=== PATIENT | male | born 1965 | race Caucasian/White ===

== ENCOUNTER 2017-07-30 11:04 | Emergency (ER) | payer OTHER ==
[~2017-07-30] VITALS: Ht 177.8 cm; Wt 99.8 kg
[~2017-07-30 11:04] MED LIST: ACYC200 PO; ALBIPROI; ALBIPROI INH; ALBU.083IS IH; ALBU90I INH; ALBU90OI; ALBU90OI INH; AMIT25 PO; AMOX500 PO; CYCL10 PO; DOXY100 PO; Doxycycline Hy100 MG PO; FLUSAL115; FLUSAL2505; FLUT44OIA IH; HYDACE10B PO; HYDACE5 PO; HYDGUAL120 PO; IBUP800 PO; KETO10 PO; LORA1 PO; MONT10T; NAPR500 PO; OXYACE5T PO; PERM5TC TOP; PRED10 PO; PRED20 PO; Prednisone20 MG PO; RXTRAM50 PO; SULTRIDS PO; Zofran Odt4 MG SL
[2017-07-30 12:38] LABS: BASOPHILS ABSOLUTE AUTO 0.09 K/mm3 (0.00-0.23); BASOPHILS PERCENT AUTO 1 % (0-2); EOSINOPHILS ABSOLUTE AUTO 0.05 K/mm3 (0.00-0.68); EOSINOPHILS PERCENT AUTO 0 % (0-6); Hematocrit 48.2 % (37.0-53.0); Hemoglobin 16.4 g/dL (13.5-17.5); IMMATURE GRAN ABSOLUTE AUTO 0.04 K/mm3 (0.00-0.10); IMMATURE GRAN PERCENT AUTO 0 % (0-1); LYMPHOCYTES ABSOLUTE AUTO 3.89 K/mm3 (0.84-5.20); LYMPHOCYTES PERCENT AUTO 27 % (21-46); MONOCYTES ABSOLUTE AUTO 1.07 K/mm3 (0.16-1.47); MONOCYTES PERCENT AUTO 7 % (4-13); Mean Corpuscular HGB 29.6 pg (26.0-34.0); Mean Corpuscular Volume 87 fL (80-100); Mean Platelet Volume 9.4 fL (9.1-12.4); NEUTROPHILS ABSOLUTE AUTO 9.49 K/mm3 (1.96-9.15); NEUTROPHILS PERCENT AUTO 65 % (41-73); Platelet Count 269 K/mm3 (150-400); RDW Coefficient Variation 15.2 % (11.7-14.2); RDW Standard Deviation 48.5 fL (35.1-46.3); Red Blood Cell Count 5.54 M/mm3 (4.30-5.90); White Blood Cell Count 14.63 K/mm3 (4.00-11.30)
[2017-07-30 12:41] LABS: Alanine Aminotransfer (ALT/SGP 27 U/L (12-78); Albumin, Blood 3.9 g/dL (3.4-5.0); Alk Phos 97 U/L (50-136); Anion Gap 7 mmol/L (6-16); Aspartate Aminotrans (AST/SGOT 21 U/L (12-37); Bilirubin, Total 0.9 mg/dL (0.1-1.0); Blood Urea Nitrogen 8 mg/dL (8-24); Bun/Creatinine Ratio 12.5 (12.0-20.0); CO2, Blood 26 mmol/L (21-32); Calcium, Blood 8.6 mg/dL (8.5-10.1); Chloride, Blood 102 mmol/L (98-108); Creatinine, Blood 0.64 mg/dL (0.60-1.20); Glomerular Filtration Rate >60 (60-); Glucose, Blood 109 mg/dL (70-99); Potassium, Blood 4.1 mmol/L (3.5-5.5); Sodium, Blood 135 mmol/L (136-145); Total Protein, Blood 7.9 g/dL (6.4-8.2)
[2017-07-30 13:35] LABS: U Amphetamine Screen Not Detected; U Barbituate Screen Not Detected; U Benzodiazapine Screen Not Detected; U Cocaine Screen Not Detected; U Methamphetamine Screen Not Detected
[2017-07-30 13:36] LABS: U Buprenorphine Screen Not Detected; U Cannabinoids Screen DETECTED; U Methadone Screen Not Detected; U Opiates Screen DETECTED; U Oxycodone Screen Not Detected; U Phencyclidine Screen Not Detected; U Propoxyphene Screen Not Detected
[2017-07-30] MEDS ORDERED: ALBU90OI INH (16:11)
[2017-07-30] MEDS ORDERED: Amoxicillin500 MG PO (16:11)
== END 2017-07-30 16:30 | disposition home or self-care (01) ==
LOC: ER 11:04
PROVIDERS: Emergency Medicine
DX: K40.90 Unilateral inguinal hernia, without obstruction or gangrene, not specified as recurrent (principal); K02.9 Dental caries, unspecified; L02.414 Cutaneous abscess of left upper limb; J45.909 Unspecified asthma, uncomplicated; J44.9 Chronic obstructive pulmonary disease, unspecified; F17.210 Nicotine dependence, cigarettes, uncomplicated; Z88.6 Allergy status to analgesic agent; Z91.018 Allergy to other foods; Z79.82 Long term (current) use of aspirin
CPT/HCPCS: 74177; 80053; 81000; 83690; 85025; 96361; 96365; 96375; 99284; J0696; J1200; J2765; J7030; Q9967

== ENCOUNTER 2018-02-12 17:23 | Emergency (ER) | payer MEDICAID ==
[~2018-02-12] VITALS: Ht 177.8 cm; Wt 90.7 kg
[~2018-02-12 17:23] MED LIST changes: +Amoxicillin500 MG PO
== END 2018-02-12 18:23 | disposition home or self-care (01) ==
LOC: ER 17:23
DX: J02.9 Acute pharyngitis, unspecified (principal); J44.9 Chronic obstructive pulmonary disease, unspecified; Z88.6 Allergy status to analgesic agent; Z91.018 Allergy to other foods; Z79.51 Long term (current) use of inhaled steroids; Z87.891 Personal history of nicotine dependence
CPT/HCPCS: 87081; 87430; 99283; J1100

== ENCOUNTER 2019-01-12 11:20 | Emergency (ER) | payer OTHER ==
[~2019-01-12] VITALS: Ht 177.8 cm; Wt 90.7 kg
[2019-01-12 11:48] LABS: BASOPHILS ABSOLUTE AUTO 0.12 K/mm3 (0.00-0.23); BASOPHILS PERCENT AUTO 1 % (0-2); EOSINOPHILS ABSOLUTE AUTO 0.17 K/mm3 (0.00-0.68); EOSINOPHILS PERCENT AUTO 2 % (0-6); Hematocrit 51.2 % (37.0-53.0); Hemoglobin 17.4 g/dL (13.5-17.5); IMMATURE GRAN ABSOLUTE AUTO 0.04 K/mm3 (0.00-0.10); IMMATURE GRAN PERCENT AUTO 0 % (0-1); LYMPHOCYTES ABSOLUTE AUTO 4.05 K/mm3 (0.84-5.20); LYMPHOCYTES PERCENT AUTO 38 % (21-46); MONOCYTES ABSOLUTE AUTO 0.62 K/mm3 (0.16-1.47); MONOCYTES PERCENT AUTO 6 % (4-13); Mean Corpuscular HGB 30.7 pg (26.0-34.0); Mean Corpuscular Volume 90 fL (80-100); Mean Platelet Volume 9.3 fL (9.1-12.4); NEUTROPHILS ABSOLUTE AUTO 5.79 K/mm3 (1.96-9.15); NEUTROPHILS PERCENT AUTO 54 % (41-73); Platelet Count 270 K/mm3 (150-400); RDW Coefficient Variation 13.8 % (11.7-14.2); RDW Standard Deviation 46.2 fL (35.1-46.3); Red Blood Cell Count 5.67 M/mm3 (4.30-5.90); White Blood Cell Count 10.79 K/mm3 (4.00-11.30)
[2019-01-12 12:10] LABS: Alanine Aminotransfer (ALT/SGP 38 U/L (12-78); Albumin, Blood 4.6 g/dL (3.4-5.0); Albumin/Globulin Ratio 1.2 (0.8-1.8); Alk Phos 106 U/L (50-136); Anion Gap 7 mmol/L (6-16); Aspartate Aminotrans (AST/SGOT 35 U/L (12-37); Bilirubin, Total 1.2 mg/dL (0.1-1.0); Blood Urea Nitrogen 13 mg/dL (8-24); Bun/Creatinine Ratio 17.2 (12.0-20.0); CO2, Blood 26 mmol/L (21-32); Calcium, Blood 9.1 mg/dL (8.5-10.1); Chloride, Blood 105 mmol/L (98-108); Creatinine, Blood 0.76 mg/dL (0.60-1.20); Globulin, Blood 3.7 g/dL (2.2-4.0); Glomerular Filtration Rate >60 (60-); Glucose, Blood 133 mg/dL (70-99); Potassium, Blood 3.9 mmol/L (3.5-5.5); Sodium, Blood 138 mmol/L (136-145); Total Protein, Blood 8.3 g/dL (6.4-8.2); Troponin I <0.015 ng/mL (0.000-0.040)
[2019-01-12] MEDS ORDERED: BUDE10.22 INH (13:08)
[2019-01-12] MEDS ORDERED: Prednisone20 MG PO (13:08)
[2019-01-12] MEDS ORDERED: ALBU90OI INH (13:08)
== END 2019-01-12 14:20 | disposition home or self-care (01) ==
LOC: ER 11:20
PROVIDERS: Emergency Medicine
DX: J44.1 Chronic obstructive pulmonary disease with (acute) exacerbation (principal); Z88.6 Allergy status to analgesic agent; Z91.018 Allergy to other foods; Z79.51 Long term (current) use of inhaled steroids; Z87.891 Personal history of nicotine dependence
CPT/HCPCS: 36415; 71046; 80053; 83880; 84484; 85025; 93005; 93010; 94640; 99285-25

== ENCOUNTER 2019-06-28 09:03 | Emergency (ER) | payer OTHER ==
[~2019-06-28] VITALS: Ht 180.3 cm; Wt 99.8 kg
[~2019-06-28 09:03] MED LIST changes: +BUDE10.22 INH
[2019-06-28] MEDS ORDERED: ALBU2.5V5 INH (11:30)
[2019-06-28] MEDS ORDERED: PRED20 PO (11:30)
[2019-06-28] MEDS ORDERED: ALBU90OI INH (11:30)
== END 2019-06-28 11:58 | disposition home or self-care (01) ==
LOC: ER 09:03
DX: R10.31 Right lower quadrant pain (principal); J45.909 Unspecified asthma, uncomplicated; Z88.6 Allergy status to analgesic agent; Z91.018 Allergy to other foods; Z79.899 Other long term (current) drug therapy; J44.9 Chronic obstructive pulmonary disease, unspecified; Z72.0 Tobacco use
CPT/HCPCS: 71046; 93005; 93010; 94640; 99283-25; J7512

== ENCOUNTER 2022-02-17 11:00 | Emergency (ER) | payer OTHER ==
[~2022-02-17] VITALS: Ht 177.8 cm; Wt 95.2 kg
[~2022-02-17 11:00] MED LIST changes: +ACET325 PO; +ALBU2.5V5 INH; +ALBU3IS INH; +BUDESONIDE-FO10.2 G2 INH; +IBUP200 PO; +LEVO750 PO; +PROBIOTIC1 EA10 PO
[2022-02-17 12:32] LABS: BASOPHILS ABSOLUTE AUTO 0.08 K/mm3 (0.00-0.23); BASOPHILS PERCENT AUTO 1 % (0-2); EOSINOPHILS ABSOLUTE AUTO 0.07 K/mm3 (0.00-0.68); EOSINOPHILS PERCENT AUTO 1 % (0-6); Hematocrit 38.2 % (37.0-53.0); IMMATURE GRAN ABSOLUTE AUTO 0.04 K/mm3 (0.00-0.10); IMMATURE GRAN PERCENT AUTO 0 % (0-1); LYMPHOCYTES ABSOLUTE AUTO 3.63 K/mm3 (0.84-5.20); LYMPHOCYTES PERCENT AUTO 35 % (21-46); MONOCYTES ABSOLUTE AUTO 0.51 K/mm3 (0.16-1.47); MONOCYTES PERCENT AUTO 5 % (4-13); Mean Corpuscular HGB 30.2 pg (26.0-34.0); Mean Corpuscular Volume 89 fL (80-100); Mean Platelet Volume 9.5 fL (9.1-12.4); NEUTROPHILS ABSOLUTE AUTO 6.08 K/mm3 (1.96-9.15); NEUTROPHILS PERCENT AUTO 58 % (41-73); Platelet Count 314 K/mm3 (150-400); RDW Coefficient Variation 14.3 % (11.7-14.2); RDW Standard Deviation 46.1 fL (35.1-46.3); White Blood Cell Count 10.41 K/mm3 (4.00-11.30)
[2022-02-17 12:54] LABS: Prothrombin Time Results 10.5 Sec (9.7-11.5)
== END 2022-02-17 15:04 | disposition home or self-care (01) ==
LOC: ER 11:00
PROVIDERS: Physician Assistant
DX: R04.0 Epistaxis (principal); J44.9 Chronic obstructive pulmonary disease, unspecified; Z79.899 Other long term (current) drug therapy; Z79.82 Long term (current) use of aspirin; Z91.018 Allergy to other foods; Z87.891 Personal history of nicotine dependence
CPT/HCPCS: 36415; 85025; 85610; A9270

== ENCOUNTER 2024-04-01 19:11 | Emergency (ER) | payer OTHER ==
[~2024-04-01] VITALS: Ht 177.8 cm; Wt 93.4 kg
[2024-04-01] MEDS ORDERED: Ipratropium/Albuterol SulF 2.5-0.5MG/3 ML Amp INH PRN (19:30)
[2024-04-01] MEDS ORDERED: Magnesium Sulf 2 GM/Water 50ML 50 ML IV ONE (19:35)
[2024-04-01 19:41] LABS: BASOPHILS ABSOLUTE AUTO 0.11 K/mm3 (0.00-0.23); BASOPHILS PERCENT AUTO 1 % (0-2); EOSINOPHILS ABSOLUTE AUTO 0.12 K/mm3 (0.00-0.68); EOSINOPHILS PERCENT AUTO 1 % (0-6); Hematocrit 47.3 % (37.0-53.0); Hemoglobin 16.4 g/dL (13.5-17.5); IMMATURE GRAN ABSOLUTE AUTO 0.03 K/mm3 (0.00-0.10); IMMATURE GRAN PERCENT AUTO 0 % (0-1); LYMPHOCYTES ABSOLUTE AUTO 3.18 K/mm3 (0.84-5.20); LYMPHOCYTES PERCENT AUTO 34 % (21-46); MONOCYTES ABSOLUTE AUTO 0.58 K/mm3 (0.16-1.47); MONOCYTES PERCENT AUTO 6 % (4-13); Mean Corpuscular HGB 29.7 pg (26.0-34.0); Mean Corpuscular HGB Conc 34.7 g/dL (31.5-36.5); Mean Corpuscular Volume 86 fL (80-100); NEUTROPHILS PERCENT AUTO 57 % (41-73); Platelet Count 272 K/mm3 (150-400); RDW Coefficient Variation 15.3 % (11.7-14.2); RDW Standard Deviation 48.1 fL (35.1-46.3); Red Blood Cell Count 5.53 M/mm3 (4.30-5.90); White Blood Cell Count 9.32 K/mm3 (4.00-11.30)
[2024-04-01 20:06] LABS: Albumin, Blood 4.4 g/dL (3.4-5.0); Albumin/Globulin Ratio 1.4 (0.8-1.8); Bilirubin, Total 0.8 mg/dL (0.1-1.0); Bun/Creatinine Ratio 18.3 (12.0-20.0); Calcium, Blood 9.3 mg/dL (8.5-10.1); Creatinine, Blood 0.71 mg/dL (0.60-1.20); Globulin, Blood 3.2 g/dL (2.2-4.0); Total Protein, Blood 7.6 g/dL (6.4-8.2)
[2024-04-01] MEDS ORDERED: LORazepam 1 MG Tab PO ONE (21:30)
[2024-04-01] MEDS ORDERED: Ativan1 MG PO (21:34)
[2024-04-01] MEDS ORDERED: PRED20 PO (21:34)
[2024-04-01] MEDS ORDERED: MethylPREDNISolone Sod Succ 125 MG Vial IV ONE (21:45)
[2024-04-01 22:45] VITALS: BP 131/77
== END 2024-04-01 22:50 | disposition home or self-care (01) ==
LOC: ER 19:11
PROVIDERS: Emergency Medicine
DX: J45.901 Unspecified asthma with (acute) exacerbation (principal); F41.9 Anxiety disorder, unspecified; J44.9 Chronic obstructive pulmonary disease, unspecified; Z91.010 Allergy to peanuts; Z91.018 Allergy to other foods; Z88.6 Allergy status to analgesic agent; Z79.899 Other long term (current) drug therapy
CPT/HCPCS: 71046; 80053; 84484; 85025; 93005; 93010; 94640; 94664; 96365; 96375; 99285-25; A9270; J2919; J3475

== ENCOUNTER 2024-05-01 18:13 | Emergency (ER) | payer OTHER ==
[~2024-05-01] VITALS: Ht 177.8 cm; Wt 93.4 kg
[~2024-05-01 18:13] MED LIST changes: +Ativan1 MG PO
[2024-05-01 18:49] VITALS: BP 111/87
[2024-05-01 19:14] LABS: BASOPHILS ABSOLUTE AUTO 0.11 K/mm3 (0.00-0.23); BASOPHILS PERCENT AUTO 1 % (0-2); EOSINOPHILS ABSOLUTE AUTO 0.34 K/mm3 (0.00-0.68); EOSINOPHILS PERCENT AUTO 3 % (0-6); Hematocrit 46.4 % (37.0-53.0); Hemoglobin 15.9 g/dL (13.5-17.5); IMMATURE GRAN ABSOLUTE AUTO 0.08 K/mm3 (0.00-0.10); IMMATURE GRAN PERCENT AUTO 1 % (0-1); LYMPHOCYTES ABSOLUTE AUTO 3.83 K/mm3 (0.84-5.20); LYMPHOCYTES PERCENT AUTO 33 % (21-46); MONOCYTES ABSOLUTE AUTO 0.81 K/mm3 (0.16-1.47); MONOCYTES PERCENT AUTO 7 % (4-13); Mean Corpuscular HGB 30.1 pg (26.0-34.0); Mean Corpuscular HGB Conc 34.3 g/dL (31.5-36.5); Mean Corpuscular Volume 88 fL (80-100); Mean Platelet Volume 8.6 fL (9.1-12.4); NEUTROPHILS ABSOLUTE AUTO 6.38 K/mm3 (1.96-9.15); NEUTROPHILS PERCENT AUTO 55 % (41-73); Platelet Count 258 K/mm3 (150-400); RDW Coefficient Variation 15.9 % (11.7-14.2); RDW Standard Deviation 51.7 fL (35.1-46.3); Red Blood Cell Count 5.28 M/mm3 (4.30-5.90); White Blood Cell Count 11.55 K/mm3 (4.00-11.30)
[2024-05-01 19:30] LABS: Albumin, Blood 3.9 g/dL (3.4-5.0); Albumin/Globulin Ratio 1.1 (0.8-1.8); Bilirubin, Total 0.6 mg/dL (0.1-1.0); Bun/Creatinine Ratio 13.4 (12.0-20.0); Calcium, Blood 8.9 mg/dL (8.5-10.1); Creatinine, Blood 0.6 mg/dL (0.60-1.20); Globulin, Blood 3.5 g/dL (2.2-4.0); Potassium, Blood 3.9 mmol/L (3.5-5.5); Total Protein, Blood 7.4 g/dL (6.4-8.2)
[2024-05-01] MEDS ORDERED: Ondansetron HCl 2 MG / ML 2ML Vial IV ONE (22:40)
[2024-05-01] MEDS ORDERED: Morphine Sulfate 4 MG/1 ML Injection IV ONE (22:40)
[2024-05-02] MEDS ORDERED: ACET500 PO (00:42)
== END 2024-05-02 01:09 | disposition home or self-care (01) ==
LOC: ER 18:13
PROVIDERS: Emergency Medicine
DX: K62.5 Hemorrhage of anus and rectum (principal); K40.30 Unilateral inguinal hernia, with obstruction, without gangrene, not specified as recurrent; R10.30 Lower abdominal pain, unspecified; R07.9 Chest pain, unspecified; J44.9 Chronic obstructive pulmonary disease, unspecified; E84.9 Cystic fibrosis, unspecified; G62.9 Polyneuropathy, unspecified; E66.9 Obesity, unspecified; Z68.29 Body mass index [BMI] 29.0-29.9, adult; Z87.891 Personal history of nicotine dependence; Z88.6 Allergy status to analgesic agent; Z91.018 Allergy to other foods; Z79.51 Long term (current) use of inhaled steroids; Z79.52 Long term (current) use of systemic steroids; Z79.899 Other long term (current) drug therapy
CPT/HCPCS: 71046; 74177; 80053; 84484; 85025; 96374-59; 96375; 99284-25; J2270; J2405; Q9967

== ENCOUNTER 2024-05-23 06:30 | Emergency (ER) | payer OTHER ==
[~2024-05-23] VITALS: Ht 177.8 cm; Wt 93.4 kg
[~2024-05-23 06:30] MED LIST changes: +ACET500 PO
[2024-05-23] MEDS ORDERED: HyDROXyzine HCl 25 MG Tab PO ONE (06:45)
[2024-05-23 07:44] LABS: BASOPHILS ABSOLUTE AUTO 0.08 K/mm3 (0.00-0.23); BASOPHILS PERCENT AUTO 1 % (0-2); EOSINOPHILS ABSOLUTE AUTO 0.21 K/mm3 (0.00-0.68); EOSINOPHILS PERCENT AUTO 2 % (0-6); Hematocrit 45.8 % (37.0-53.0); Hemoglobin 15.9 g/dL (13.5-17.5); IMMATURE GRAN ABSOLUTE AUTO 0.03 K/mm3 (0.00-0.10); IMMATURE GRAN PERCENT AUTO 0 % (0-1); LYMPHOCYTES ABSOLUTE AUTO 3.08 K/mm3 (0.84-5.20); LYMPHOCYTES PERCENT AUTO 25 % (21-46); MONOCYTES PERCENT AUTO 7 % (4-13); Mean Corpuscular HGB 30.3 pg (26.0-34.0); Mean Corpuscular HGB Conc 34.7 g/dL (31.5-36.5); Mean Corpuscular Volume 87 fL (80-100); Mean Platelet Volume 10.3 fL (9.1-12.4); NEUTROPHILS ABSOLUTE AUTO 7.91 K/mm3 (1.96-9.15); NEUTROPHILS PERCENT AUTO 65 % (41-73); Platelet Count 271 K/mm3 (150-400); RDW Coefficient Variation 13.8 % (11.7-14.2); RDW Standard Deviation 44.4 fL (35.1-46.3); Red Blood Cell Count 5.24 M/mm3 (4.30-5.90); White Blood Cell Count 12.21 K/mm3 (4.00-11.30)
[2024-05-23 08:00] LABS: Albumin, Blood 3.7 g/dL (3.4-5.0); Albumin/Globulin Ratio 1.2 (0.8-1.8); Bilirubin, Total 1.1 mg/dL (0.1-1.0); Bun/Creatinine Ratio 17.5 (12.0-20.0); Calcium, Blood 9.3 mg/dL (8.5-10.1); Creatinine, Blood 0.74 mg/dL (0.60-1.20); Globulin, Blood 3.1 g/dL (2.2-4.0); Potassium, Blood 3.3 mmol/L (3.5-5.5); Total Protein, Blood 6.8 g/dL (6.4-8.2)
[2024-05-23 08:58] LABS: Influenza A, PCR NEGATIVE (NEGATIVE); Influenza B, PCR NEGATIVE (NEGATIVE); Resp Syncytial Virus, PCR NEGATIVE (NEGATIVE); SARS-Cov-2 (COVID-19) PCR, MMC NEGATIVE (NEGATIVE)
[2024-05-23] MEDS ORDERED: HYDHCL25 PO (09:54)
[2024-05-23 10:26] VITALS: BP 149/93
== END 2024-05-23 10:27 | disposition home or self-care (01) ==
LOC: ER 06:30
PROVIDERS: Emergency Medicine
DX: R06.02 Shortness of breath (principal); F41.9 Anxiety disorder, unspecified; J44.89 Other specified chronic obstructive pulmonary disease; Z87.891 Personal history of nicotine dependence; Z79.52 Long term (current) use of systemic steroids; Z79.899 Other long term (current) drug therapy; Z79.51 Long term (current) use of inhaled steroids; Z88.6 Allergy status to analgesic agent; Z91.018 Allergy to other foods
CPT/HCPCS: 0241U; 71046; 80053; 83880; 85025; 93005; 93010; 99285-25; A9270

== ENCOUNTER 2024-05-24 18:13 | Emergency (ER) | payer OTHER ==
[~2024-05-24] VITALS: Ht 177.8 cm; Wt 117.9 kg
[~2024-05-24 18:13] MED LIST changes: +HYDHCL25 PO
[2024-05-24 18:44] VITALS: BP 138/79
[2024-05-24] MEDS ORDERED: HYDROcodone 5-APAP 325 TAB PO ONE (19:15)
== END 2024-05-24 19:47 | disposition home or self-care (01) ==
LOC: ER 18:13
DX: K40.90 Unilateral inguinal hernia, without obstruction or gangrene, not specified as recurrent (principal); J44.89 Other specified chronic obstructive pulmonary disease; Z87.891 Personal history of nicotine dependence; Z79.51 Long term (current) use of inhaled steroids; Z79.899 Other long term (current) drug therapy; Z79.52 Long term (current) use of systemic steroids; Z88.6 Allergy status to analgesic agent; Z91.018 Allergy to other foods
CPT/HCPCS: 99283; A9270

== ENCOUNTER 2024-05-28 14:24 | Emergency (ER) | payer OTHER ==
[~2024-05-28] VITALS: Ht 177.8 cm; Wt 93.9 kg
[2024-05-28 14:38] VITALS: BP 136/92
[2024-05-28 15:15] LABS: BASOPHILS ABSOLUTE AUTO 0.12 K/mm3 (0.00-0.23); BASOPHILS PERCENT AUTO 1 % (0-2); EOSINOPHILS ABSOLUTE AUTO 0.25 K/mm3 (0.00-0.68); EOSINOPHILS PERCENT AUTO 3 % (0-6); Hematocrit 43.2 % (37.0-53.0); Hemoglobin 15.1 g/dL (13.5-17.5); IMMATURE GRAN ABSOLUTE AUTO 0.02 K/mm3 (0.00-0.10); IMMATURE GRAN PERCENT AUTO 0 % (0-1); LYMPHOCYTES ABSOLUTE AUTO 3.93 K/mm3 (0.84-5.20); LYMPHOCYTES PERCENT AUTO 47 % (21-46); MONOCYTES ABSOLUTE AUTO 0.55 K/mm3 (0.16-1.47); MONOCYTES PERCENT AUTO 7 % (4-13); Mean Corpuscular HGB 30.9 pg (26.0-34.0); Mean Corpuscular Volume 88 fL (80-100); Mean Platelet Volume 9.9 fL (9.1-12.4); NEUTROPHILS ABSOLUTE AUTO 3.43 K/mm3 (1.96-9.15); NEUTROPHILS PERCENT AUTO 42 % (41-73); Platelet Count 291 K/mm3 (150-400); RDW Coefficient Variation 14.1 % (11.7-14.2); RDW Standard Deviation 45.9 fL (35.1-46.3); Red Blood Cell Count 4.89 M/mm3 (4.30-5.90)
[2024-05-28 16:13] LABS: Albumin, Blood 3.7 g/dL (3.4-5.0); Bilirubin, Total 0.3 mg/dL (0.1-1.0); Bun/Creatinine Ratio 14.4 (12.0-20.0); Calcium, Blood 9.3 mg/dL (8.5-10.1); Creatinine, Blood 0.9 mg/dL (0.60-1.20); Globulin, Blood 3.6 g/dL (2.2-4.0); Potassium, Blood 4.1 mmol/L (3.5-5.5); Total Protein, Blood 7.3 g/dL (6.4-8.2)
== END 2024-05-28 18:40 | disposition left against medical advice (07) ==
LOC: ER 14:24
PROVIDERS: Physician Assistant
DX: K40.20 Bilateral inguinal hernia, without obstruction or gangrene, not specified as recurrent (principal); R06.2 Wheezing; Z79.51 Long term (current) use of inhaled steroids; Z79.899 Other long term (current) drug therapy; Z53.21 Procedure and treatment not carried out due to patient leaving prior to being seen by health care provider
CPT/HCPCS: 71046; 80053; 85025; 99282-25

== ENCOUNTER 2024-06-11 11:22 | Inpatient (IN) | payer OTHER ==
[~2024-06-11] VITALS: Ht 177.8 cm; Wt 94.5 kg
[2024-06-11] MEDS ORDERED: Ipratropium/Albuterol SulF 2.5-0.5MG/3 ML Amp INH ONE (11:35)
[2024-06-11] MEDS ORDERED: MethylPREDNISolone Sod Succ 125 MG Vial IV ONE (11:35)
[2024-06-11] MEDS ORDERED: Albuterol 2.5 MG/3 ML VIAL INH SCH ×2 (11:35→13:30)
[2024-06-11] MEDS ORDERED: SERT20L (11:43)
[2024-06-11] MEDS ORDERED: Azithromycin 500 MG in NS 250 ML IV ONE (11:50)
[2024-06-11 11:59] LABS: BASOPHILS PERCENT AUTO 1 % (0-2); EOSINOPHILS ABSOLUTE AUTO 0.01 K/mm3 (0.00-0.68); EOSINOPHILS PERCENT AUTO 0 % (0-6); Hematocrit 46.3 % (37.0-53.0); Hemoglobin 15.8 g/dL (13.5-17.5); IMMATURE GRAN ABSOLUTE AUTO 0.05 K/mm3 (0.00-0.10); IMMATURE GRAN PERCENT AUTO 0 % (0-1); LYMPHOCYTES ABSOLUTE AUTO 1.85 K/mm3 (0.84-5.20); LYMPHOCYTES PERCENT AUTO 16 % (21-46); MONOCYTES ABSOLUTE AUTO 0.25 K/mm3 (0.16-1.47); MONOCYTES PERCENT AUTO 2 % (4-13); Mean Corpuscular HGB 30.3 pg (26.0-34.0); Mean Corpuscular HGB Conc 34.1 g/dL (31.5-36.5); Mean Corpuscular Volume 89 fL (80-100); NEUTROPHILS ABSOLUTE AUTO 9.04 K/mm3 (1.96-9.15); NEUTROPHILS PERCENT AUTO 80 % (41-73); Platelet Count 300 K/mm3 (150-400); RDW Coefficient Variation 14.6 % (11.7-14.2); RDW Standard Deviation 47.3 fL (35.1-46.3); Red Blood Cell Count 5.22 M/mm3 (4.30-5.90)
[2024-06-11 12:09] LABS: Base Excess Venous 4.4 mmol/L; Bicarbonate Venous 28.3 mmol/L (24.0-30.0); PCO2 Venous 37.4 mmHg (38-42); pH Blood Venous 7.48 (7.34-7.37)
[2024-06-11 12:17] LABS: CORONAVIRUS COVID-19 AG Negative (NEGATIVE); INFLUENZA A AG Negative (NEGATIVE); INFLUENZA B AG Negative (NEGATIVE)
[2024-06-11 12:20] LABS: Magnesium, Blood 2.4 mg/dL (1.6-2.4)
[2024-06-11 12:42] LABS: Albumin, Blood 3.6 g/dL (3.4-5.0); Albumin/Globulin Ratio 1.1 (0.8-1.8); Bilirubin, Total 0.9 mg/dL (0.1-1.0); Bun/Creatinine Ratio 21.8 (12.0-20.0); Calcium, Blood 9.2 mg/dL (8.5-10.1); Creatinine, Blood 0.6 mg/dL (0.60-1.20); Globulin, Blood 3.4 g/dL (2.2-4.0); Potassium, Blood 3.8 mmol/L (3.5-5.5)
[2024-06-11] MEDS ORDERED: Acetaminophen 500 MG Tab PO PRN (14:40)
[2024-06-11] MEDS ORDERED: FLU VACC TS2024-25(6MOS UP)/PF 45 MCG/0.5 ML SYRINGE IM ONE (14:40)
[2024-06-11] MEDS ORDERED: Polyethylene Glycol 3350 17 gm PO PRN (14:40)
[2024-06-11 17:51] VITALS: BP 142/82
[2024-06-11] MEDS ORDERED: MethylPREDNISolone Sod Succ 125 MG Vial IV SCH (18:00)
--- NOTE | 2024-06-11 18:42 | NUR ---
PT ADMITTED FROM ED AT 1745, ALERT AND ORIENTED X4, VSS, RA. RESPIRATIONS 20-25, PT STATES HE IS ANXIOUS. ORIENTED TO ROOM AND CALL LIGHT. CALL LIGHT IN REACH, BED IN LOW POSITION.
[2024-06-11 19:14] VITALS: BP 137/82
[2024-06-11] MEDS ORDERED: Docusate Sodium/Senna 1 Tab PO SCH (21:00)
[2024-06-11] MEDS ORDERED: Lactobacil 2-S.Thermo-Bifido 1 1 Cap PO SCH (21:00)
[2024-06-11] MEDS ORDERED: TraMADol HCl 50 MG Tab PO PRN (22:35)
[2024-06-12] MEDS ORDERED: Ipratropium/Albuterol SulF 2.5-0.5MG/3 ML Amp INH SCH (04:05)
[2024-06-12] MEDS ORDERED: Mometasone/Formoterol MDI 100/5 mcg 13 GM INH SCH (04:05)
[2024-06-12] MEDS ORDERED: Albuterol 2.5 MG/3 ML VIAL INH PRN (04:05)
[2024-06-12 04:13] VITALS: BP 126/82
[2024-06-12 04:49] LABS: Hematocrit 44.5 % (37.0-53.0); Hemoglobin 15.3 g/dL (13.5-17.5); Mean Corpuscular HGB 30.5 pg (26.0-34.0); Mean Corpuscular HGB Conc 34.4 g/dL (31.5-36.5); Mean Corpuscular Volume 89 fL (80-100); Mean Platelet Volume 9.3 fL (9.1-12.4); Platelet Count 293 K/mm3 (150-400); RDW Coefficient Variation 14.8 % (11.7-14.2); RDW Standard Deviation 47.4 fL (35.1-46.3); Red Blood Cell Count 5.02 M/mm3 (4.30-5.90); White Blood Cell Count 8.43 K/mm3 (4.00-11.30)
[2024-06-12 05:29] LABS: Albumin, Blood 3.3 g/dL (3.4-5.0); Anion Gap 13 mmol/L (3-11); Blood Urea Nitrogen 15 mg/dL (8-24); Bun/Creatinine Ratio 26.6 (12.0-20.0); CO2, Blood 25 mmol/L (21-32); Calcium, Blood 8.9 mg/dL (8.5-10.1); Chloride, Blood 105 mmol/L (98-108); Creatinine, Blood 0.56 mg/dL (0.60-1.20); Glomerular Filtration Rate 115 (60-); Glucose, Blood 161 mg/dL (70-99); Magnesium, Blood 2.4 mg/dL (1.6-2.4); Phosphorus, Blood 3.3 mg/dL (2.5-4.9); Potassium, Blood 4.1 mmol/L (3.5-5.5); Sodium, Blood 139 mmol/L (136-145)
--- NOTE | 2024-06-12 07:44 | NUR ---
SHIFT SUMMARY A&0X4, SISTER VISITED EARLY IN SHIFT, PER SISTER PT HAS ANXIETY & PAIN. PLAN OF CARE REVIEWED WITH PT & SISTER , APPETITE & PO FLUID INTAKE GOOD & SNACKS GIVEN. APPEARED TO BE SLEEPING VERY WELL OVERNIGHT. VSS. SOB W/EXERTION, COUGH, PRODUCTIVE AT TIMES ,LUNG SOUNDS VERY COARSE THROUGHOUT, NO ACUTE DISTRESS, ON ROOM AIR, EARLIER IN SHIFT PT C/O CHRONIC LEFT SHOULDER PAIN AND HAND PAIN FROM A RECENT HAND INJUY (XRAY NEG FOR FX PER PT) PAIN 8/10 PER PT AND REQUESTED PAIN MED DR NOTIFIED & ORDER RECEIVED FOR TRAMADOL PRN PAIN. WAS SLEEPING VERY SOUNDLY WHEN PAIN MED BROUGHT-PAIN MED GIVEN LATER WHEN AWAKE , SLEPT DURING MIDNIGHT SOLUMEDROL DOSE, CALL LIGHT IN REACH AT ALL TIMES AND RESTING QUIETLY ON ALL ROUNDS WITH NO DISTRESS NOTED.
[2024-06-12 08:00] VITALS: BP 128/78
--- NOTE | 2024-06-12 08:20 | NUR ---
ASSUMED CARE OF PT- PT CALLED WITH C/O RIGHT SIDED "MIGRAINE" STATES HE TAKES NOTHING AT HOME FOR THEM AND THAT THEY ARE USUALLY ON THE LEFT SIDE. PUPIL ON THE RIGHT IS 1MM LARGER THAN THE LEFT AND PT C/O INCREASED LIGHT SENSITIVITY ON THAT SIDE. LEFT SECOND MILLER WEAKER EARL THE RIGHT BUT THE PT STATES A RECENT INJURY TO THAT SHOULDER (HE STATES TORN TENDON). DENIES N/T OTHERWISE.
[2024-06-12] MEDS ORDERED: Azithromycin 500 MG in NS 250 ML IV SCH (09:00)
[2024-06-12] MEDS ORDERED: Enoxaparin 40 MG/0.4 ML SYR SC SCH (09:00)
[2024-06-12] MEDS ORDERED: Multivitamins 1 Tab PO SCH (09:00)
[2024-06-12] MEDS ORDERED: Cholecalciferol 1000 Unit Tablet (=25MCG) PO SCH (09:00)
--- NOTE | 2024-06-12 12:01 | NUR ---
MARLON VO- PT STATED THE DOCTOR WAS GOING TO ORDER SOMETHING FOR HIS HEADACHE, WAITED LONGER TO CALL MD, PT STATES PAIN IS WORSE AND APPEARS TO BE IN DISTRESS WITH THE PAIN. CALLED DR VO, HE IS ORDERING A MED. WILL PASS ON TO BREAK RN TO MEDICATE WHEN MED IS AVAILABLE.
[2024-06-12] MEDS ORDERED: Ibuprofen 600 MG Tab PO PRN (12:35)
[2024-06-12] MEDS ORDERED: Metoclopramide HCl 5MG / ML 2ML Vial IV PRN (12:40)
[2024-06-12 15:20] VITALS: BP 134/82
--- NOTE | 2024-06-12 15:22 | NUR ---
SHIFT SUMMARY- PT ALERT, ORIENTED AND INDEPENDENT IN THE ROOM. L FA IV IS SL WITH EXCEPTION OF WHEN THE PT IS RECIEVING ABX. PT ON ROOM AIR. LUNGS ARE COARSE T/O WITH CRACKLES HEARD IN THE BASES. PT HAD A C/O MIGRAINE HEADACHE TODAY AND WAS MEDICATED WITH TRAMADOL, PT STATES AT THIS POINT THE HEADACHE IS DDOWN TO 2/10. PT IS SITTING UP IN BED, CALL LIGHT IN REACH NO S&S OF DISTRESS NOTED AT THIS TIME. WILL PASS ON TO NIGHT RN AT THE BEDSIDE.
[2024-06-12 22:55] VITALS: BP 128/80
[2024-06-13 05:15] VITALS: BP 130/81
--- NOTE | 2024-06-13 05:47 | NUR ---
SHIFT SUMMARY A&OX4, ANXIETY ABOUT DISCHARGE AND OTHER THINGS- RECOMMEND A CLAIMS ADJUDICATOR SEE PT BEFORE DISCHARGE, , LUNGS VERY COARSE THROUGHOUT WITH SCATTERED WHEEZING. SKIN FLUSHED,WARM& DRY. 02 APPLIED FOR SLIGHT SOB AT REST WITH SAT OF 91%, APPEARS TO SLEEP FAIRLY WELL ,VSS. VOIDING W/O DIFFICULTY, DENIES CONSTIPATION & DECLINED SENNA. EXPLAINED TO PT RATIONALE FOR SOLUMEDROL.
[2024-06-13 07:15] VITALS: BP 119/69
[2024-06-13 15:23] VITALS: BP 145/86
--- NOTE | 2024-06-13 17:36 | NUR ---
SHIFT SUMMARY PT AOX4, INDEPENDENT IN THE ROOM. USES THE URINAL AT THE BS. MEDICATED FOR PAIN PER THE EMAR. ANXIOUS TODAY ABOUT DC TOMORROW, HE FORMULATED A PLAN AND FEELS MORE AT EASE NOW. NO ACUTE CHANGES. PT IS HOMELESS AND PLANS TO GO TO [facility] TO RECEIVE REHAB. PT REPOSITIONS SELF IN BED. CALL LIGHT WITHIN REACH, BED LOCKED AND IN THE LOWEST POSITION. WILL REPORT TO ONCOMING NURSE.
[2024-06-13 19:19] VITALS: BP 129/81
[2024-06-14 05:06] VITALS: BP 117/74
--- NOTE | 2024-06-14 05:09 | NUR ---
SHIFT SUMMARY PT ALERT AND ORIENTED TIMES 4. PT ADMITTED FOR ACUTE RESPIRATORY FAILURE. PT IS ON ROOM AIR AND INDEPENDENT. PT ABLE TO AMBULATE TO TOILET AND CHAIR. PT HAS HX OF COPD, ASTHMA, AND TESTED POSITIVE FOR PT WAS RECEPTIVE TO CARE. PT TOOK HS MEDICATION AND IS APPROPRIATE WITH CALL LIGHT. PT ABLE TO MAKE NEEDS KNOWN. BED IN LOW POSITION, CALL LIGHT WITHIN REACH, RAILS TIMES 2.
[2024-06-14 07:21] VITALS: BP 126/84
[2024-06-14] MEDS ORDERED: PredniSONE 20 MG Tab PO SCH (10:00)
[2024-06-14] MEDS ORDERED: Mag Hydrox/Al Hydrox/Simeth 18 ML,Lidocaine 2% Viscous Soln 9 ML,Atropine/Scopalam/Hyos... PO ONE (10:05)
[2024-06-14] MEDS ORDERED: DOCUZEN 8.6-501 EACH PO (12:08)
[2024-06-14] MEDS ORDERED: IPRAT-ALBUT 0.5-3 ML INH (12:09)
[2024-06-14] MEDS ORDERED: MIRALAX17 GM PO (12:10)
[2024-06-14] MEDS ORDERED: MULVITA PO (12:10)
[2024-06-14] MEDS ORDERED: PRED20 PO (12:11)
[2024-06-14] MEDS ORDERED: Vitamin D1000 UNI1 PO (12:11)
--- NOTE | 2024-06-14 16:28 | NUR ---
DISCHARGE PLANNING: PT HAD HOME O2 EVAL COMPLETED SHOWING NO NEED FOR HOME O2. PT HAS TOLD THIS RN SEVERAL REASONS HE IS UNABLE TO DISCHARGE TODAY, INCLUDING LACK OF RESOURCES AND BEING [place]OWER [place] USE [place] NEBULIZER. PROJECT MANAGER SENIOR IN TO SEE THE PATIENT. SHE STATES SHE WILL REASSESS IN THE AM AND PT WILL DC PROBABLY TOMORROW. DR LAMB.
[2024-06-14 17:28] VITALS: BP 135/85
--- NOTE | 2024-06-14 18:45 | NUR ---
PT HAS BEEN STABLE THIS SHIFT. PERSISTENT SOB WITH EXERTION. O2 EVAL DONE AND PT DOES NOT SHOW A NEED FOR HOME O2. PT CONCERNED AND ANXIOUS ABOUT DISCHARGE RESOURCES. CARE MANAGEMENT IN ROOM MULTIPLE TIMES. PT INDEP TO BATHROOM. VOIDING WELL. HAVING BM'S. IV S.L. EXCEPT FOR ABX. PLAN ON DC TOMORROW PT HAS IMPROVED.
[2024-06-14 20:24] VITALS: BP 138/84
[2024-06-15 04:17] VITALS: BP 136/89
--- NOTE | 2024-06-15 04:54 | NUR ---
AAOX4. INDEPENDENT IN ROOM, USES CALL LIGHT FOR NEEDS. RA, SOB WITH EXCERTION. NO ACUTE NEEDS OVER NIGHT. PLAN TO DC THIS AM AFTER CASE MANAGEMENT METS WITH PT. PT IS UNSHELTERED AND NEEDS A POWER SOURCE FOR HIS NEBULIZER.
[2024-06-15 08:14] VITALS: BP 130/91
--- NOTE | 2024-06-15 12:08 | NUR ---
PT IS A&O INDEPENDENT IN . ABLE TO D/C TODAY. PT'S LUNGS T/O COARSE WITH WHEEZES; RT TX GIVEN. PT IS A SMOKER AND NONCOMPLIANT WITH MEDS AND TREATMENTS. COMPLETED IV ABX. PT TO CONTINUE PREDNISONE; MEDS FAXED TO [facility], PER PT REQUEST. SHIPPING AND RECEIVING OPERATOR ASSISTED WITH TRANSPORTATION. PT TAKEN OUT TO CAB VIA W/C WITH ALL BELONGINGS.
== END 2024-06-15 11:33 | disposition home or self-care (01) | DRG 189 ==
LOC: ER 11:22 → MEDS 11:24
PROVIDERS: Student in an Organized Health Care Education/Training Program; ADMIT Internal Medicine
DX: J96.00 Acute respiratory failure, unspecified whether with hypoxia or hypercapnia (principal); J44.1 Chronic obstructive pulmonary disease with (acute) exacerbation; Z59.02 Unsheltered homelessness; G62.9 Polyneuropathy, unspecified; K40.90 Unilateral inguinal hernia, without obstruction or gangrene, not specified as recurrent; F41.9 Anxiety disorder, unspecified; M19.90 Unspecified osteoarthritis, unspecified site; G89.4 Chronic pain syndrome; Z87.891 Personal history of nicotine dependence; Z88.8 Allergy status to other drugs, medicaments and biological substances; Z79.52 Long term (current) use of systemic steroids; Z79.51 Long term (current) use of inhaled steroids
CPT/HCPCS: 36415; 71045; 80053; 80069; 82803; 83735; 84145; 85025; 85027; 87428-QW; 93005; 93010; 94640; 94644; 94645; 94664; 94760; 94761; 96365; 96375; 99285-25; A9270; J0456; J2919; J7050; J7512

== ENCOUNTER 2024-06-16 23:38 | Emergency (ER) | payer OTHER ==
[~2024-06-16] VITALS: Ht 170.2 cm; Wt 95.7 kg
[~2024-06-16 23:38] MED LIST changes: +DOCUZEN 8.6-501 EACH PO; +IPRAT-ALBUT 0.5-3 ML INH; +MIRALAX17 GM PO; +MULVITA PO; +SERT20L; +Vitamin D1000 UNI1 PO
[2024-06-16 23:41] VITALS: BP 120/87
[2024-06-16] MEDS ORDERED: Albuterol 2.5 MG/3 ML VIAL INH SCH (23:50)
[2024-06-17 00:24] LABS: Hematocrit 45.8 % (37.0-53.0); Hemoglobin 15.8 g/dL (13.5-17.5); Mean Corpuscular HGB 30.3 pg (26.0-34.0); Mean Corpuscular HGB Conc 34.5 g/dL (31.5-36.5); Mean Corpuscular Volume 88 fL (80-100); Mean Platelet Volume 8.9 fL (9.1-12.4); Platelet Count 287 K/mm3 (150-400); RDW Coefficient Variation 14.8 % (11.7-14.2); RDW Standard Deviation 47.6 fL (35.1-46.3); Red Blood Cell Count 5.22 M/mm3 (4.30-5.90); White Blood Cell Count 14.23 K/mm3 (4.00-11.30)
[2024-06-17 00:37] LABS: Albumin, Blood 3.6 g/dL (3.4-5.0); Albumin/Globulin Ratio 1.2 (0.8-1.8); Bilirubin, Total 0.5 mg/dL (0.1-1.0); Bun/Creatinine Ratio 40.2 (12.0-20.0); Calcium, Blood 9.1 mg/dL (8.5-10.1); Creatinine, Blood 0.75 mg/dL (0.60-1.20); Magnesium, Blood 2.6 mg/dL (1.6-2.4); Potassium, Blood 3.9 mmol/L (3.5-5.5); Total Protein, Blood 6.6 g/dL (6.4-8.2)
[2024-06-17 01:33] LABS: BASOPHILS PERCENT MAN 0 % (0-2); EOSINOPHILS ABSOLUTE MAN 0.42 K/mm3 (0.00-0.68); EOSINOPHILS PERCENT MAN 3 % (0-6); LYMPHOCYTES ABSOLUTE MAN 7.54 K/mm3 (0.84-5.20); LYMPHOCYTES PERCENT MAN 53 % (21-46); MONOCYTES ABSOLUTE MAN 1.56 K/mm3 (0.16-1.47); MONOCYTES PERCENT MAN 11 % (4-13); NEUTROPHILS ABSOLUTE MAN 4.69 K/mm3 (1.96-9.15); SEG NEUTROPHILS PERCENT MAN 33 % (41-73); TOTAL CELLS COUNTED 100
[2024-06-17 02:16] LABS: CORONAVIRUS COVID-19 AG Negative (NEGATIVE); INFLUENZA A AG Negative (NEGATIVE); INFLUENZA B AG Negative (NEGATIVE)
[2024-06-17] MEDS ORDERED: RX Prepack Albuterol 1 PREPACK/6.7 GM INH UD ONE (02:25)
== END 2024-06-17 02:36 | disposition home or self-care (01) ==
LOC: ER 23:38
PROVIDERS: Student in an Organized Health Care Education/Training Program
DX: J44.1 Chronic obstructive pulmonary disease with (acute) exacerbation (principal); Z87.891 Personal history of nicotine dependence; Z79.52 Long term (current) use of systemic steroids; Z79.51 Long term (current) use of inhaled steroids; Z79.899 Other long term (current) drug therapy; Z88.6 Allergy status to analgesic agent; Z91.018 Allergy to other foods
CPT/HCPCS: 71045; 80053; 83735; 83880; 84484; 85025; 87428-QW; 93005; 93010; 94640; 94664; 99285-25; A9270

== ENCOUNTER 2024-06-22 18:57 | Emergency (ER) | payer OTHER ==
[~2024-06-22] VITALS: Ht 177.8 cm; Wt 95.2 kg
[2024-06-22 19:00] VITALS: BP 151/83
[2024-06-22] MEDS ORDERED: Ketorolac Tromethamine 10 MG Tab PO ONE (21:10)
== END 2024-06-22 21:48 | disposition home or self-care (01) ==
LOC: ER 18:57
DX: M25.561 Pain in right knee (principal); K40.20 Bilateral inguinal hernia, without obstruction or gangrene, not specified as recurrent; J44.9 Chronic obstructive pulmonary disease, unspecified; Z88.6 Allergy status to analgesic agent; Z91.018 Allergy to other foods; Z79.899 Other long term (current) drug therapy
CPT/HCPCS: 73562-RT; 76857; 99284-25; A9270

== ENCOUNTER 2024-06-29 11:56 | Inpatient (IN) | payer OTHER ==
[~2024-06-29] VITALS: Ht 177.8 cm; Wt 96.0 kg
[2024-06-29] MEDS ORDERED: Albuterol 2.5 MG/3 ML VIAL INH SCH ×2 (12:45→15:10)
[2024-06-29] MEDS ORDERED: MethylPREDNISolone Sod Succ 125 MG Vial IV ONE (12:45)
[2024-06-29] MEDS ORDERED: Ipratropium Bromide INH 0.02% 0.5 mg/2.5ML Vial INH SCH ×2 (12:45→15:10)
[2024-06-29 13:09] LABS: Albumin, Blood 3.4 g/dL (3.4-5.0); Bilirubin, Total 0.7 mg/dL (0.1-1.0); Bun/Creatinine Ratio 23.7 (12.0-20.0); Calcium, Blood 9.1 mg/dL (8.5-10.1); Creatinine, Blood 0.51 mg/dL (0.60-1.20); Globulin, Blood 3.3 g/dL (2.2-4.0); Potassium, Blood 3.3 mmol/L (3.5-5.5); Total Protein, Blood 6.7 g/dL (6.4-8.2)
[2024-06-29 13:42] LABS: BASOPHILS ABSOLUTE AUTO 0.09 K/mm3 (0.00-0.23); BASOPHILS PERCENT AUTO 1 % (0-2); EOSINOPHILS ABSOLUTE AUTO 0.18 K/mm3 (0.00-0.68); EOSINOPHILS PERCENT AUTO 3 % (0-6); Hematocrit 43.1 % (37.0-53.0); Hemoglobin 14.5 g/dL (13.5-17.5); IMMATURE GRAN ABSOLUTE AUTO 0.02 K/mm3 (0.00-0.10); IMMATURE GRAN PERCENT AUTO 0 % (0-1); LYMPHOCYTES PERCENT AUTO 30 % (21-46); MONOCYTES ABSOLUTE AUTO 0.35 K/mm3 (0.16-1.47); MONOCYTES PERCENT AUTO 5 % (4-13); Mean Corpuscular HGB 30.2 pg (26.0-34.0); Mean Corpuscular HGB Conc 33.6 g/dL (31.5-36.5); Mean Corpuscular Volume 90 fL (80-100); Mean Platelet Volume 9.5 fL (9.1-12.4); NEUTROPHILS ABSOLUTE AUTO 4.39 K/mm3 (1.96-9.15); NEUTROPHILS PERCENT AUTO 61 % (41-73); Platelet Count 227 K/mm3 (150-400); RDW Coefficient Variation 14.3 % (11.7-14.2); RDW Standard Deviation 47.1 fL (35.1-46.3); White Blood Cell Count 7.23 K/mm3 (4.00-11.30)
[2024-06-29 14:06] LABS: Influenza A, PCR NEGATIVE (NEGATIVE); Influenza B, PCR NEGATIVE (NEGATIVE); Resp Syncytial Virus, PCR NEGATIVE (NEGATIVE); SARS-Cov-2 (COVID-19) PCR, MMC NEGATIVE (NEGATIVE)
[2024-06-29] MEDS ORDERED: Ipratropium/Albuterol SulF 2.5-0.5MG/3 ML Amp INH SCH (17:05)
[2024-06-29] MEDS ORDERED: HydrOXYzine Pamoate 25 MG Cap PO PRN (17:10)
[2024-06-29] MEDS ORDERED: NS 1,000 ML IV SCH (17:10)
[2024-06-29] MEDS ORDERED: FLU VACC TS2024-25(6MOS UP)/PF 45 MCG/0.5 ML SYRINGE IM SCH (17:10)
[2024-06-29] MEDS ORDERED: Benzonatate 100 MG Cap PO PRN (17:10)
[2024-06-29] MEDS ORDERED: Ondansetron HCl 2 MG / ML 2ML Vial IV PRN (17:15)
[2024-06-29] MEDS ORDERED: Albuterol 2.5 MG/3 ML VIAL INH PRN (17:15)
[2024-06-29] MEDS ORDERED: Potassium Chloride 20 MEQ TabCR PO ONE (18:00)
[2024-06-29] MEDS ORDERED: Azithromycin 500 MG in NS 250 ML IV SCH (18:00)
[2024-06-29 19:32] LABS: U Cannabinoids Screen DETECTED
[2024-06-29 19:33] LABS: U Amphetamine Screen Not Detected; U Barbituate Screen Not Detected; U Benzodiazapine Screen Not Detected; U Buprenorphine Screen Not Detected; U Cocaine Screen Not Detected; U Methadone Screen Not Detected; U Methamphetamine Screen Not Detected; U Opiates Screen Not Detected; U Oxycodone Screen Not Detected; U Phencyclidine Screen Not Detected
[2024-06-29] MEDS ORDERED: Lactobacil 2-S.Thermo-Bifido 1 1 Cap PO SCH (21:00)
[2024-06-29] MEDS ORDERED: GuaiFENesin 600 MG TabCR PO SCH (21:00)
[2024-06-29 21:17] VITALS: BP 144/73
[2024-06-29] MEDS ORDERED: MethylPREDNISolone Sod Succ 125 MG Vial IV SCH (23:00)
--- NOTE | 2024-06-30 03:44 | NUR ---
SHIFT SUMM: PT IS A 58 YO FULL CODE WHO WAS ADMITTED AND TRANSFERED FROM THE ED TO MEDICAL FLOOR THIS SHIFT. PT WAS ADMITTED FOR COPD EXACERBATION. PT HAS SOB ON EXCERTION AND REPORTS SOME ABDOMINAL PAIN FROM 2 HERNIAS THAT SOMETIMES EFFECTS AND IS PAINFUL IN HIS SCROTUM. PT HAS A SPLIT IN BETWEEN HIS TOES ON THE R TOE (PICTURE IN CHART). PT IS CURRENTLY HOMELESS AND LIVES IN A [place]. PT IS ON RA . PT IS ON CONT FLUIDS AT 100 ML/HR. PT HAS WHEEZY AUDIBLE LUNG SOUNDS. PT IS IND IN ROOM W/A HIST OF ASTHMA,COPD AND CF. PT CALLS NEEDED AND HAS BEEN RESTING MOST OF THE NIGHT.
[2024-06-30 05:51] VITALS: BP 122/82
[2024-06-30 06:30] LABS: Bun/Creatinine Ratio 27.3 (12.0-20.0); Calcium, Blood 8.9 mg/dL (8.5-10.1); Creatinine, Blood 0.51 mg/dL (0.60-1.20); Potassium, Blood 3.9 mmol/L (3.5-5.5)
[2024-06-30 07:13] VITALS: BP 119/83
[2024-06-30] MEDS ORDERED: Enoxaparin 40 MG/0.4 ML SYR SC SCH (09:00)
[2024-06-30 14:35] VITALS: BP 115/70
--- NOTE | 2024-06-30 18:02 | NUR ---
SHIFT SUMMARY PT IS A/OX4, INDEPENDENT IN THE ROOM. ON RA, SATS MAINTAINING >90%. CONTINUOUS NS INFUSING @ 100 ML/HR. RECIEVING IV ANTIBIOTICS. PT REPORTS THAT HE LIVES IN [facility] IN A TENT.
[2024-06-30 21:18] VITALS: BP 121/75
[2024-07-01 03:38] VITALS: BP 127/77
--- NOTE | 2024-07-01 03:49 | NUR ---
SHIFT SUMM: PT HAS BEEN RELAXING MOST OF THE EVENING AND WATCHING TV WITH NO COMPLAINTS. PT HAS BEEN COUGHING BUT GETS BREATHING TREATMENTS THAT HELP. PT IS IND IN THE ROOM AND ON RA, PT IS ALSO ON CONT FLUIDS AT 100. PT HAS CALL LIGHT IN REACH AND CALLS NEEDED.
[2024-07-01 08:03] VITALS: BP 128/83
[2024-07-01] MEDS ORDERED: LevoFLOXacin 750 MG Tab PO SCH (12:00)
[2024-07-01] MEDS ORDERED: Budesonide 0.5 MG/2 ML RESP INH SCH (12:00)
[2024-07-01] MEDS ORDERED: GuaiFENesin 600 MG TabCR PO SCH (12:00)
[2024-07-01 14:46] VITALS: BP 123/75
--- NOTE | 2024-07-01 18:36 | NUR ---
SHIFT SUMMARY PT IS A/OX4, INDEPENDENT IN THE ROOM. ON RA THROUGHOUT MOST OF THE DAY, HOWEVER PT PLACED ON 1L NC WHILE SHOWERING D/T EXPERIENCING SOME SOB WITH EXERTION. NS RUNNING AT 100 ML/HR. CONTINUOUS RECIEVNING IV ANTIBIOTICS. PT REPORTS HE LIVES IN A TENT IN [facility]. PT PLEASANT AND COOPERATIVE AND CALLS APPROPRIATELY.
[2024-07-01 21:13] VITALS: BP 132/93
[2024-07-02 02:19] VITALS: BP 138/88
--- NOTE | 2024-07-02 04:13 | NUR ---
SHIFT SUMMARY: PT AOX4 IND IN ROOM. PLEASANT MOOD AND AFFECT. NO ACUTE CHANGES. TOLERATING MEDICATION WELL, DENIES CB OR SOB. HAS BEEN HAVING PRODUCTIVE COUGH BUT DID GET A LOT OF SLEEP THIS NIGHT. PT IN BED RESTIN, BED IN LOWEST POSITION, CALL LIGHT IN REACH. CONTIUING CARE.
[2024-07-02 08:07] VITALS: BP 130/85
[2024-07-02] MEDS ORDERED: HYDHCL25 PO (12:12)
[2024-07-02] MEDS ORDERED: GUAI600T33 PO (12:12)
[2024-07-02] MEDS ORDERED: [UNRECOGNIZED DRUG - CODE] PO (12:13)
[2024-07-02] MEDS ORDERED: OMEP20ER PO (12:13)
[2024-07-02] MEDS ORDERED: SYMBICORT 160-4.6 GM INH (12:15)
--- NOTE | 2024-07-02 13:23 | NUR ---
THIS PATIENT REQUESTED A RIDE TO [facility]. THIS NURSE CALLED [facility] JUST PRIOR TO THIS NOTE AND ARRANGED A RIDE FOR PT TO [facility] AND THEN TO THE [facility] PER HIS REQUEST. PT IS TO MEET THE TAXI AT THE [facility] IN ABOUT 10 MINUTES. PRIMARY NURSE AND TELEVISION ENGINEER NOTIFIED.
--- NOTE | 2024-07-02 13:33 | NUR ---
DISCHARGE PT DC AOX4, COOPERATIVE, ABLE TO MAKE NEEDS KNOWN. TRAVEL MANAGER TRANPORTED PT DOWN TO PT ENTRANCE VIA WHEELCHAIR. IV DC'D BY TRAVEL MANAGER. TRANSPORTATION WAS ARRANGED FOR PT TO BE TAKEN TO [facility] TO CLAIM HIS [facility] ACCORDING TO PT.
== END 2024-07-02 13:31 | disposition home or self-care (01) | DRG 189 ==
LOC: ER 11:56 → ERHOLD 11:57 → MEDS 11:57 → ENPENDDIS 07-02 11:37 → MEDS 07-02 13:31
PROVIDERS: Nurse Practitioner Acute Care; Student in an Organized Health Care Education/Training Program; ADMIT Internal Medicine
DX: J96.01 Acute respiratory failure with hypoxia (principal); J44.1 Chronic obstructive pulmonary disease with (acute) exacerbation; E84.9 Cystic fibrosis, unspecified; Z59.02 Unsheltered homelessness; J96.02 Acute respiratory failure with hypercapnia; F41.9 Anxiety disorder, unspecified; G62.9 Polyneuropathy, unspecified; G89.4 Chronic pain syndrome; Z93.0 Tracheostomy status; F15.90 Other stimulant use, unspecified, uncomplicated; Z88.6 Allergy status to analgesic agent; Z91.018 Allergy to other foods; Z98.890 Other specified postprocedural states; Z87.891 Personal history of nicotine dependence
CPT/HCPCS: 0241U; 36415; 71045; 80048; 80053; 84145; 84484; 85025; 93005; 93010; 94640; 94644; 94645; 94664; 94760; 96374; 99285-25; A9270; J0456; J1650; J2919; J7030; J7050

== ENCOUNTER 2024-07-04 18:20 | Emergency (ER) | payer OTHER ==
[~2024-07-04] VITALS: Ht 177.8 cm; Wt 122.5 kg
[2024-07-04 18:35] VITALS: BP 129/90
[2024-07-04] MEDS ORDERED: Ipratropium/Albuterol SulF 2.5-0.5MG/3 ML Amp INH PRN (18:40)
[2024-07-04 19:08] LABS: BASOPHILS ABSOLUTE AUTO 0.03 K/mm3 (0.00-0.23); BASOPHILS PERCENT AUTO 0 % (0-2); EOSINOPHILS ABSOLUTE AUTO 0.35 K/mm3 (0.00-0.68); EOSINOPHILS PERCENT AUTO 3 % (0-6); Hematocrit 45.9 % (37.0-53.0); Hemoglobin 15.5 g/dL (13.5-17.5); IMMATURE GRAN ABSOLUTE AUTO 0.14 K/mm3 (0.00-0.10); IMMATURE GRAN PERCENT AUTO 1 % (0-1); LYMPHOCYTES ABSOLUTE AUTO 4.33 K/mm3 (0.84-5.20); LYMPHOCYTES PERCENT AUTO 34 % (21-46); MONOCYTES ABSOLUTE AUTO 0.99 K/mm3 (0.16-1.47); MONOCYTES PERCENT AUTO 8 % (4-13); Mean Corpuscular HGB 30.2 pg (26.0-34.0); Mean Corpuscular HGB Conc 33.8 g/dL (31.5-36.5); Mean Corpuscular Volume 90 fL (80-100); NEUTROPHILS ABSOLUTE AUTO 6.97 K/mm3 (1.96-9.15); NEUTROPHILS PERCENT AUTO 55 % (41-73); Platelet Count 335 K/mm3 (150-400); RDW Coefficient Variation 14.3 % (11.7-14.2); RDW Standard Deviation 46.5 fL (35.1-46.3); Red Blood Cell Count 5.13 M/mm3 (4.30-5.90); White Blood Cell Count 12.81 K/mm3 (4.00-11.30)
[2024-07-04 19:35] LABS: Albumin, Blood 3.3 g/dL (3.4-5.0); Bilirubin, Total 0.7 mg/dL (0.1-1.0); Bun/Creatinine Ratio 25.1 (12.0-20.0); Creatinine, Blood 0.72 mg/dL (0.60-1.20); Globulin, Blood 3.2 g/dL (2.2-4.0); Potassium, Blood 3.8 mmol/L (3.5-5.5); Total Protein, Blood 6.5 g/dL (6.4-8.2)
[2024-07-04] MEDS ORDERED: MethylPREDNISolone Sod Succ 125 MG Vial IV ONE (20:10)
[2024-07-04] MEDS ORDERED: Ipratropium/Albuterol SulF 2.5-0.5MG/3 ML Amp INH ONE (20:10)
[2024-07-04] MEDS ORDERED: Albuterol 2.5 MG/3 ML VIAL INH ONE (20:20)
== END 2024-07-04 22:45 | disposition home or self-care (01) ==
LOC: ER 18:20
PROVIDERS: Student in an Organized Health Care Education/Training Program
DX: J44.1 Chronic obstructive pulmonary disease with (acute) exacerbation (principal); K92.1 Melena; R10.9 Unspecified abdominal pain; K40.20 Bilateral inguinal hernia, without obstruction or gangrene, not specified as recurrent; G62.9 Polyneuropathy, unspecified; Z87.891 Personal history of nicotine dependence; Z88.6 Allergy status to analgesic agent; Z91.018 Allergy to other foods; Z79.51 Long term (current) use of inhaled steroids; Z79.899 Other long term (current) drug therapy
CPT/HCPCS: 71046; 80053; 84484; 85025; 86850; 86900; 86901; 93005; 93010; 94640; 94645; 94664; 96374; 99285-25; J2919

== ENCOUNTER → 2024-07-04 | Outpatient (CLI) | payer OTHER ==
[~2024-07-04] MED LIST changes: +GUAI600T33 PO; +OMEP20ER PO; +SYMBICORT 160-4.6 GM INH; +[UNRECOGNIZED DRUG - CODE] PO
[2024-07-04 16:24] LABS: BASOPHILS ABSOLUTE AUTO 0.03 K/mm3 (0.00-0.23); BASOPHILS PERCENT AUTO 0 % (0-2); EOSINOPHILS ABSOLUTE AUTO 0.36 K/mm3 (0.00-0.68); EOSINOPHILS PERCENT AUTO 3 % (0-6); Hematocrit 46.9 % (37.0-53.0); Hemoglobin 15.8 g/dL (13.5-17.5); IMMATURE GRAN ABSOLUTE AUTO 0.15 K/mm3 (0.00-0.10); IMMATURE GRAN PERCENT AUTO 1 % (0-1); LYMPHOCYTES ABSOLUTE AUTO 4.67 K/mm3 (0.84-5.20); LYMPHOCYTES PERCENT AUTO 37 % (21-46); MONOCYTES ABSOLUTE AUTO 1.01 K/mm3 (0.16-1.47); MONOCYTES PERCENT AUTO 8 % (4-13); Mean Corpuscular HGB 29.9 pg (26.0-34.0); Mean Corpuscular HGB Conc 33.7 g/dL (31.5-36.5); Mean Corpuscular Volume 89 fL (80-100); Mean Platelet Volume 8.9 fL (9.1-12.4); NEUTROPHILS ABSOLUTE AUTO 6.35 K/mm3 (1.96-9.15); NEUTROPHILS PERCENT AUTO 51 % (41-73); Platelet Count 346 K/mm3 (150-400); RDW Coefficient Variation 14.5 % (11.7-14.2); RDW Standard Deviation 46.5 fL (35.1-46.3); Red Blood Cell Count 5.29 M/mm3 (4.30-5.90); White Blood Cell Count 12.57 K/mm3 (4.00-11.30)
[2024-07-04 16:36] LABS: Albumin, Blood 3.9 g/dL (3.4-5.0); Albumin/Globulin Ratio 1.2 (0.8-1.8); Bilirubin, Total 0.5 mg/dL (0.1-1.0); Calcium, Blood 8.9 mg/dL (8.5-10.1); Creatinine, Blood 0.75 mg/dL (0.60-1.20); Globulin, Blood 3.3 g/dL (2.2-4.0); Potassium, Blood 3.6 mmol/L (3.5-5.5); Total Protein, Blood 7.2 g/dL (6.4-8.2)
== END ==
LOC: LAB SHORT 16:20
PROVIDERS: Chiropractor
DX: K92.1 Melena (principal)
CPT/HCPCS: 80053; 85025